=== PATIENT | female | born 1990 | race Caucasian/White ===

== ENCOUNTER 2017-01-27 11:25 | Emergency (ER) | payer OTHER ==
[~2017-01-27] VITALS: Ht 152.4 cm; Wt 109.0 kg
[~2017-01-27 11:25] MED LIST: ALBU8.5H5 INH; AZIT250T94 PO; CIPR500T4 PO; IBUP-1542 PO; NAPR-260 PO; NITR-58 PO
[2017-01-27 11:26] VITALS: Ht 152.4 cm; Wt 109.0 kg
[2017-01-27] MEDS ORDERED: ONDANSETRON (ODT) 4 MG TAB ODT STA (12:20)
[2017-01-27 12:35] LABS: URINE BLOOD (Dip) POC Trace-intact (NEGATIVE)
[2017-01-27] MEDS ORDERED: ONDA8TAB14 PO (13:18)
--- NOTE | 2017-01-27 13:23 | ERD ---
ER Documentation Chief Complaint Date/Time DATE: 01/27/17 TIME: 13:21 Chief Complaint vomiting since 01/26 w/ 4 episodes of clear/yellow emesis HPI This 26-year-old female presents with vomiting over the last day. Approximate 4 times. Vomiting is unless nonbloody. She denies abdominal pain, diarrhea community complaints, fevers. She denies foreign travel or suspect food or sick contacts. She denies ROS All systems reviewed and are negative except as per history of present illness. Medications Home Meds Active Scripts Ondansetron (Ondansetron Odt) 8 Mg Tab.rapdis, 8 MG PO Q6H Y for NAUSEA AND/OR VOMITING, #8 TAB Prov:JESSE ABY MD 01/27/17 Naproxen* (Naprosyn*) 500 Mg Tablet, 500 MG PO BID Y for PAIN AND/OR INFLAMMATION, #30 TAB Prov:JONAS GOLDEN PA-C 12/08/15 Nitrofurantoin Monohyd Macrocr* (Macrobid*) 100 Mg Capsr, 100 MG PO BID for 7 Days, CAP Prov:JONAS GOLDEN PA-C 12/08/15 Ciprofloxacin Hcl* (Ciprofloxacin Hcl*) 500 Mg Tablet, 500 MG PO BID for 7 Days , TAB Prov:JUANA MABRY PA-C 02/12/15 Ibuprofen* (Motrin*) 600 Mg Tab, 600 MG PO Q6, #15 TAB Prov:CHO,CRISTINE 01/28/15 Albuterol Sulfate* (Albuterol Sulfate* HFA) 8.5 Gm Hfa.aer.ad, 1-2 PUFF INH Q4 Y for SHORTNESS OF BREATH, #1 EA Prov:CHO,CRISTINE 01/28/15 Azithromycin* (Zithromax*) 250 Mg Tablet, 250 MG PO .ZPACK DIRECTED, #6 TAB TAKE 500 MG (2 TABS) THE FIRST DAY THEN 250 MG (1 TAB) DAYS 2-5 Prov:CHO,CRISTINE 01/28/15 Allergies Allergies: Coded Allergies: Sulfa (Sulfonamide Antibiotics) (Verified Allergy, Unknown, 01/27/17) PMhx/Soc History of Surgery: No Anesthesia Reaction: No Hx Neurological Disorder: No Hx Respiratory Disorders: Yes (ASTHMA) Hx Cardiac Disorders: No Hx Psychiatric Problems: No Hx Miscellaneous Medical Probl: Yes (Morbid OBESITY, ) Hx Alcohol Use: Yes (socially) Hx Substance Use: No Hx Tobacco Use: Yes (socially) Smoking Status: Never smoker Physical Exam Vitals Vital Signs Date Time Temp Pulse Resp B/P Pulse Ox O2 Delivery O2 Flow Rate FiO2 01/27/17 11:26 98.5 80 20 125/77 98 Physical Exam Const: [] Alert, not ill-appearing. Morbidly obese. Head: Atraumatic Eyes: Normal Conjunctiva ENT: Normal External Ears, Nose and Mouth. Neck: Full range of motion..~ No meningismus. Resp: Clear to auscultation bilaterally Cardio: Regular rate and rhythm, no murmurs Abd: Soft, non tender, non distended. Normal bowel sounds Skin: No petechiae or rashes Back: No midline or flank tenderness Ext: No cyanosis, or edema Neur: Awake and alert Psych: Normal Mood and Affect Results 24 hrs Laboratory Tests Test 01/27/17 12:40 Bedside Urine pH (LAB) 6.5 Bedside Urine Protein (LAB) Negative Bedside Urine Glucose (UA) Negative Bedside Urine Ketones (LAB) Negative Bedside Urine Blood Trace-intact Bedside Urine Nitrite (LAB) Negative Bedside Urine Leukocyte Esterase (L Negative Current Medications Medications (Trade) Dose Ordered Sig/Autumn Route PRN Reason Start Time Stop Time Status Last Admin Dose Admin Ondansetron HCl (Zofran Odt) 8 mg ONCE STAT ODT 01/27/17 12:20 01/27/17 12:22 DC 01/27/17 12:30 Procedures/MDM Urine is negative for leukocytes, nitrites, hemoglobin. HCG is negative. Patient was given Zofran 8 mg by mouth. Patient no further episodes of vomiting during the ER course and had a benign abdomen. Patient presents with vomiting of one days duration without evidence of abdominal pain, obstruction, signs of appendicitis, hepatobiliary disease, UTI, additional causes of presenting complaint. She may have a gastrointestinal virus and was treated with Zofran and observation at home. She is advised to recheck in the next day for vomiting despite treatment, blood, worsening pain, new or worsening symptoms or primary care doctor. Departure Diagnosis: Primary Impression: Vomiting Vomiting type: unspecified Vomiting Intractability: unspecified Nausea presence: unspecified Qualified Code: R11.10 - Vomiting, intractability of vomiting not specified, presence of nausea not specified, unspecified vomiting type Condition: Stable Patient Instructions: Vomiting (6Y-Adult) Additional Instructions: Suspect viral illness which may last 1-3 days. Recheck for fevers, pain, blood, new or worsening symptoms. JESSE BAY MD Jan 27, 2017 13:23
== END 2017-01-27 13:32 | disposition home or self-care (01) ==
LOC: FTE 11:25
DX: R11.10 Vomiting, unspecified (principal); J45.909 Unspecified asthma, uncomplicated; E66.01 Morbid (severe) obesity due to excess calories; Z68.42 Body mass index [BMI] 45.0-49.9, adult
CPT/HCPCS: 81003; Z7502; Z7610; 99283

== ENCOUNTER 2018-12-01 14:33 | Emergency (ER) | payer OTHER ==
[~2018-12-01] VITALS: Ht 160 cm; Wt 120.5 kg
[~2018-12-01 14:33] MED LIST changes: +AZIT250T PO; -AZIT250T94 PO; -NAPR-260 PO; +NAPR-985 PO; +ONDA8TAB14 PO
[2018-12-01 14:47] VITALS: Ht 160 cm; Wt 120.5 kg
[2018-12-01] MEDS ORDERED: ALBUTEROL 0.083% (NEB) 2.5 MG/3 ML AMP NEB STA (16:03)
[2018-12-01] MEDS ORDERED: predniSONE 20 MG TAB PO STA (16:03)
[2018-12-01] MEDS ORDERED: BENZ-6 PO (16:54)
[2018-12-01] MEDS ORDERED: AZIT250T PO (16:56)
[2018-12-01] MEDS ORDERED: ALBU8.5H8 INH (16:56)
[2018-12-01] MEDS ORDERED: PRED20TA PO (16:57)
--- NOTE | 2018-12-01 17:04 | ERD ---
ER Documentation Chief Complaint Chief Complaint cough congestion x1wk, hx: asthma HPI 27-year-old female presents with complaints of cough, congestion, wheezing, shortness of breath x1 week. Patient has a history of asthma and notes to have not been using her albuterol inhaler due to insurance issues. Patient notes to have not tried any medication for her cough at this time. Patient denies fever, dizziness, vomiting, headache. ROS All systems reviewed and are negative except as per history of present illness. Medications Home Meds Active Scripts Prednisone* (Prednisone*) 20 Mg Tab, 40 MG PO DAILY for BRONCHITIS for 4 Days, TAB Prov:SHARAN HERNANDEZ PA-C 12/01/18 Azithromycin* (Zithromax*) 250 Mg Tablet, 250 MG PO .LINCOLN DIRECTED for BRO NCHITIS, #6 TAB TAKE 500 MG (2 TABS) THE FIRST DAY THEN 250 MG (1 TAB) DAYS 2-5 Prov:SHARAN HERNANDEZ PA-C 12/01/18 Albuterol Sulfate* (Proair HFA*) 8.5 Gm Hfa.aer.ad, 2 PUFF INH Q6 for ASTHMA, #1 INHALER Prov:SHARAN HERNANDEZ PA-C 12/01/18 Benzonatate* (Tessalon Perle*) 100 Mg Capsule, 100 MG PO Q8H PRN for COUGH for 7 Days, #14 CAP Prov:SHARAN HERNANDEZ PA-C 12/01/18 Ondansetron (Ondansetron Odt) 8 Mg Tab.rapdis, 8 MG PO Q6H PRN for NAUSEA AND/OR VOMITING, #8 TAB Prov:JESSE BAY MD 01/27/17 Naproxen* (Naprosyn*) 500 Mg Tablet, 500 MG PO BID PRN for PAIN AND/OR INFLAMMATION, #30 TAB Prov:JONAS GOLDEN PA-C 12/08/15 Nitrofurantoin Monohyd Macrocr* (Macrobid*) 100 Mg Capsr, 100 MG PO BID for 7 Days, CAP Prov:JONAS GOLDEN PA-C 12/08/15 Ciprofloxacin Hcl* (Ciprofloxacin Hcl*) 500 Mg Tablet, 500 MG PO BID for 7 Days, TAB Prov:JUANA MABRY PA-C 02/12/15 Ibuprofen* (Motrin*) 600 Mg Tab, 600 MG PO Q6, #15 TAB Prov:CHO,CRISTINE 01/28/15 Albuterol Sulfate* (Albuterol Sulfate* HFA) 8.5 Gm Hfa.aer.ad, 1-2 PUFF INH Q4 PRN for SHORTNESS OF BREATH, #1 EA Prov:CHO,CRISTINE 01/28/15 Azithromycin* (Zithromax*) 250 Mg Tablet, 250 MG PO .ZPACK DIRECTED, #6 TAB TAKE 500 MG (2 TABS) THE FIRST DAY THEN 250 MG (1 TAB) DAYS 2-5 Prov:CHO,CRISTINE 01/28/15 Allergies Allergies: Coded Allergies: Sulfa (Sulfonamide Antibiotics) (Verified Allergy, Unknown, 01/27/17) PMhx/Soc Medical and Surgical Hx: pt denies Surgical Hx History of Surgery: No Anesthesia Reaction: No Hx Neurological Disorder: No Hx Respiratory Disorders: Yes (ASTHMA) Hx Cardiac Disorders: No Hx Psychiatric Problems: No Hx Miscellaneous Medical Probl: Yes (Morbid OBESITY, ) Hx Alcohol Use: Yes (socially) Hx Substance Use: No Hx Tobacco Use: Yes (socially) Smoking Status: Current some day smoker Physical Exam Vitals Vital Signs Date Temp Pulse Resp B/P (MAP) Pulse Ox O2 O2 Flow FiO2 Time Delivery Rate 12/01/18 98.6 98 18 129/82 97 Room Air 17:06 (98) 12/01/18 104 16 92 21 16:13 12/01/18 99.4 89 18 138/94 99 14:47 (109) Physical Exam Const: No acute distress Head: Atraumatic Eyes: Normal Conjunctiva ENT: Normal External Ears, Nose and Mouth. Neck: Full range of motion. No meningismus. Resp: Audible diffuse wheezes bilaterally. No respiratory distress. No accessory muscle use. Speaking full sentences. Cardio: Regular rate and rhythm, no murmurs Abd: Soft, non tender, non distended. Normal bowel sounds Skin: No petechiae or rashes Back: No midline or flank tenderness Ext: No cyanosis, or edema Neur: Awake and alert Psych: Normal Mood and Affect Results 24 hrs Laboratory Tests Test 12/01/18 16:12 POC Beta HCG, Qualitative NEGATIVE Current Medications Medications Dose Sig/Autumn Start Time Status Last (Trade) Ordered Route PRN Stop Time Admin Dose Reason Admin Albuterol 5 mg ONCE STAT 12/01/18 DC 12/01/18 (Proventil NEB 16:03 16:10 0.083% (Neb)) 12/01/18 16:05 Prednisone 60 mg ONCE STAT 12/01/18 DC 12/01/18 (Prednisone) PO 16:03 16:16 12/01/18 16:05 Procedures/MDM 27y/o female presents with moderate symptoms of persistent cough and shortness of breath x 3 days. The physical exam indicated a frequent cough with nasal congestion, wheezing and symptoms consistent with bronchitis. HR was WNL with a normal saturation, no history of DVT, leg swelling/pain, or hemoptysis or immobility making PE unlikely. X-ray imaging not warranted. Patient received prednisone 60 mg p.o. and albuterol 5 mg nebulizer while in ED, patient noticed improvement in symptoms upon reevaluation. Repeat auscultation revealed resolution of wheezing, and full breath sounds. Given the patients condition improved during their stay after the administration of medications pt deemed stable with normal vital signs upon re-evaluation. Patient reports no new complaints and agrees with plan for further observation and care. Treatment plan discussed with pt and pt discharged with prescription for Albuterol HFA inhaler, Tessalon, Z-pack, and Prednisone. Pt advised to f/u with PCP within next 1-2 days and return to ED at onset of any new or worsening symptoms. Pt expressed verbal understanding and agreement to treatment plan. All questions addressed and answered. Departure Diagnosis: Primary Impression: Bronchitis Additional Impression: Asthma Asthma severity: mild Asthma persistence: unspecified Asthma complication type: unspecified Qualified Codes: J45.909 - Unspecified asthma, uncomplicated Condition: Good Patient Instructions: Asthma, Bronchitis With Wheezing (Adult) SHARAN HERNANDEZ PA-C December 01, 2018 17:04
[2018-12-01 17:06] VITALS: BP 129/82; PULSE 98; RESP 18
== END 2018-12-01 17:09 | disposition home or self-care (01) ==
LOC: FTE 14:33
DX: J40 Bronchitis, not specified as acute or chronic (principal); E66.01 Morbid (severe) obesity due to excess calories; F17.210 Nicotine dependence, cigarettes, uncomplicated; Z68.42 Body mass index [BMI] 45.0-49.9, adult
CPT/HCPCS: 81025; 94664; J7512; Z7502; Z7610